=== PATIENT | female | born 1995 | race Caucasian/White ===

== ENCOUNTER 2018-10-05 09:45 | Emergency (ER) | payer MEDICAID ==
[~2018-10-05] VITALS: Ht 165.1 cm; Wt 85.0 kg
[~2018-10-05 09:45] MED LIST: CEPH-443 PO
[2018-10-05 09:49] VITALS: BP 132/70; PULSE 96; RESP 17; Ht 165.1 cm; Wt 85.0 kg
--- NOTE | 2018-10-05 19:31 | ERD ---
ER Documentation Chief Complaint Chief Complaint SENT FOR EVAL FOR NO FHT, LMP 5-20-19, NO VB, NO PAIN HPI 23yo 9wk female presents today for pelvic ultrasound after no FHT were heard at [employer] office yesterday. Pt denies pelvic pain, cramping, vaginal bleeding, discharge, or abdominal pain. She is current on all her care up to now. She is otherwise healthy, with no known medical conditions. ROS All systems reviewed and are negative except as per history of present illness. Medications Home Meds Active Scripts Cephalexin* (Keflex*) 500 Mg Capsule, 500 MG PO BID for 7 Days, #14 CAP Prov:MATI TOLBERT PA-C 10/05/18 Allergies Allergies: Coded Allergies: No Known Allergy (Unverified , 10/05/18) PMhx/Soc Medical and Surgical Hx: pt denies Medical Hx, pt denies Surgical Hx FmHx Family History: No diabetes, No coronary disease, No other Physical Exam Vitals Vital Signs Date Temp Pulse Resp B/P (MAP) Pulse Ox O2 O2 Flow FiO2 Time Delivery Rate 10/05/18 98.3 96 17 132/70 98 09:49 (90) Physical Exam GENERAL: Alert and coherent. Well appearing, non-toxic. No acute distress. HEAD: Normocephalic, atraumatic. EYES: EOMI. PERRL. No conjunctival injection. No scleral icterus. ENT: Nasal passages patent. Moist mucous membranes. NECK: Supple. Full range of motion. Trachea midline. No lymphadenopathy. RESPIRATORY: No tachypnea. Clear to auscultation bilaterally. No wheezing, rales or rhonchi. No accessory muscle use. CV: Regular rate and rhythm. No murmurs, rubs, or gallops. ABDOMEN: Soft, non-distended, non-tender. No guarding. No rebound tenderness or rigidity. No masses. Positive bowel sounds in all four quadrants. BACK: Full ROM. No CVA tenderness. EXTREMITIES: No deformity. No clubbing, cyanosis or edema. Equal pulses x 4. SKIN: Warm and dry. No obvious rashes, erythema, or petechiae. NEUROLOGIC: Alert and oriented x3. Appropriate speech, mood and affect. Face is symmetric. Speech is normal. CN II-XII intact. Moves all extremities equally. Ambulates with a strong, steady gait. Results 24 hrs Laboratory Tests Test 10/05/18 10:22 10/05/18 10:31 Urine Color YELLOW Urine Clarity CLOUDY Urine pH 7.0 Urine Specific [place] 1.006 Urine Ketones NEGATIVE mg/dL Urine Nitrite NEGATIVE mg/dL Urine Bilirubin NEGATIVE mg/dL Urine Urobilinogen NEGATIVE mg/dL Urine Leukocyte Esterase 3+ Irwin/ul Urine Microscopic RBC 4 /HPF Urine Microscopic WBC 4 /HPF Urine Squamous Epithelial Cells MODERATE /HPF Urine Amorphous Crystals FEW /HPF Urine Bacteria FEW /HPF Urine Hemoglobin NEGATIVE mg/dL Urine Glucose NEGATIVE mg/dL Urine Total Protein NEGATIVE mg/dl Beta HCG, Quantitative 19103.0 mIU/ml POC Beta HCG, Qualitative POSITIVE Procedures/MDM PROCEDURE: US Obstetrical 1st Trimester FINDINGS: The uterus is anteverted and prominent in size measuring 10.5 cm in sagittal diameter and 8.4 x 7.7 cm in cross diameter.. There is a well implanted gestational sac within the fundus of the uterus with a mean sac diameter of 3.39 cm which corresponds to a gestational sac age of 8 weeks 4 days. A yolk sac is identified. There is a single pole with a crown-rump length of 2.64 cm which corresponds to a gestational age of 9 weeks 3 days. No cardiac activity is detectable. The right ovary measures 2.9 x 2.3 x 2.2 cm and appears normal.. The left ovary measures 3.1 x 1.5 x 1.5 cm and appears normal. Vascular flow is demonstrated in each ovary on Doppler. No adnexal mass or free fluid is identified IMPRESSION: 1. demise with the fetus the size of the average fetus at 9 weeks 3 days by crown-rump length. 2. Unremarkable appearing ovaries with vascular flow demonstrated in each on Doppler. 3. No adnexal mass or free fluid is identified. MDM: 23yo 9weeks female presents to ED for ultrasound after no FHT heard in [facility] office. US findings discussed with patient and counseled re garding absent heart tones on US consistent with demise per radiologist. Pt counseled regarding need for f/u with pulp grinder and blender and repeat hormone levels in 48hrs to r/o ectopic. Pt stated would be presenting to [facility] office immediately after ED discharge. Pt also found to have concurrent UTI, pt is afebrile with no abdominal pain, pelvic pain, or flank pain. Will be discharged with rx Keflex and close follow-up with [employer] stressed and reiterated with patient for definitive management of US findings. Pt is to return to the ED at the immediate onset of any new or worsening symptoms. Pt expressed verbal understanding and agreement to treatment plan. All questions addressed and answered. Departure Diagnosis: Primary Impression: Miscarriage Additional Impression: Urinary tract infection Urinary tract infection type: acute cystitis Hematuria presence: without hematuria Qualified Codes: N30.00 - Acute cystitis without hematuria Condition: Stable Patient Instructions: Understanding Urinary Tract Infections (UTIs), Miscarriage Additional Instructions: Please return within 48hrs for repeat HCG testing or f/u with your pulp grinder and blender MATI TOLBERT PA-C Oct 05, 2018 19:31
== END 2018-10-05 13:00 | disposition home or self-care (01) ==
LOC: FTE 09:45
DX: O03.9 Complete or unspecified spontaneous abortion without complication (principal); O23.41 Unspecified infection of urinary tract in pregnancy, first trimester
CPT/HCPCS: 36415; 76801; 76817; 81001; 81025; 84702; Z7502

== ENCOUNTER 2018-10-07 10:34 | Emergency (ER) | payer MEDICAID ==
[~2018-10-07] VITALS: Ht 162.6 cm; Wt 85.5 kg
[2018-10-07 10:36] VITALS: Ht 162.6 cm; Wt 85.5 kg
--- NOTE | 2018-10-07 11:53 | ERD ---
ER Documentation Chief Complaint Chief Complaint for recheck of labs , 9 weeks preg , seen here on 10/05 HPI This is a 23-year-old female G2, P1 who presents at roughly 9 weeks to have repeat labs and possibly repeat ultrasound after she was told she was possibly having a miscarriage 2 days ago. Patient states that she was seen at her OB office 2 days ago and was told that there were no heart tones and was advised to report to the emergency department to have ultrasound. Patient had an ultrasound that day that showed demise. Patient is here to have repeat labs. Patient denies any pelvic pain, vaginal bleeding, vaginal discharge, dysuria, hematuria, cramping, abdominal pain, nausea, vomiting, diarrhea, constipation and all other symptoms. ROS All systems reviewed and are negative except as per history of present illness. Medications Home Meds Active Scripts Cephalexin* (Keflex*) 500 Mg Capsule, 500 MG PO BID for 7 Days, #14 CAP Prov:MATI TOLBERT PA-C 10/05/18 Allergies Allergies: Coded Allergies: No Known Allergy (Unverified , 10/05/18) PMhx/Soc Medical and Surgical Hx: pt denies Medical Hx, pt denies Surgical Hx Hx Alcohol Use: No Hx Substance Use: No Hx Tobacco Use: No Physical Exam Vitals Vital Signs Date Temp Pulse Resp B/P (MAP) Pulse Ox O2 O2 Flow FiO2 Time Delivery Rate 10/07/18 99.1 83 18 131/78 98 10:36 (95) Physical Exam Const: No acute distress Head: Atraumatic Eyes: Normal Conjunctiva ENT: Normal External Ears, Nose and Mouth. Neck: Full range of motion. No meningismus. Resp: Clear to auscultation bilaterally Cardio: Regular rate and rhythm, no murmurs Abd: Soft, non tender, non distended. Normal bowel sounds Skin: No petechiae or rashes Back: No midline or flank tenderness Ext: No cyanosis, or edema Neur: Awake and alert Psych: Normal Mood and Affect Results 24 hrs Laboratory Tests Test 10/07/18 11:20 Beta HCG, Quantitative 61537.0 mIU/ml Procedures/MDM EKG, MONITORS, & DIAGNOSTIC IMAGING: [address] [address] Radiology Main Line: [phone] DIAGNOSTIC IMAGING REPORT Patient: ANTWON KEVIN : 1995 Age: 23 Sex: F MR #: [id number] DOS: 10/07/18 1113 Ordering MD: PAULA DANG PA-C Location: [facility] Room/Bed: PROCEDURE: US Obstetrical 1st Trimester with endovaginal scanning and Doppler CLINICAL INDICATION: Miscarriage TECHNIQUE: Multiple real-time images were acquired of the patient's maternal abdomen utilizing a curved array transducer. Endovaginal scanning and Doppler were also applied COMPARISON: 10/05/2018 FINDINGS: The uterus is anteverted and prominent in size measuring 11.4 cm in sagittal diameter and 8.4 x 6.0 cm in cross diameter. Small Nabothian cysts are seen in the cervix. There is a well implanted gestational sac within the fundus of the uterus with a mean sac diameter of 3.39 cm which corresponds to a gestational sac age of 8 weeks 4 days. A yolk sac is identified. There is a single pole with a crown-rump length of 2.51 cm which corresponds to a gestational age of 9 weeks 2 days. No cardiac activity is demonstrated. The right ovary measures 3.3 x 3.3 x 2.2 cm and appears normal.. The left ovary measures 3.3 x 3.0 x 1.9 cm and appears normal. Vascular flow is demonstrated in each ovary on Doppler. No adnexal mass or free fluid is identified IMPRESSION: 1. demise with the fetus the size of the average fetus at 8 weeks 6 days plus or minus 4 days. This is not significantly changed from the previous study. 2. Normal ovaries with each demonstrating vascular flow on Doppler. 3. Again, no adnexal mass or free fluid is identified. Findings of demise at approximately 8-week 6 days gestation were telephoned by Eleazar Daniels MD to Flavia Odom on 10/07/2018 at 1240 hours. Physician Faustina Date Time Electronically viewed and signed by Physician Faustina on 10/07/2018 12:42 RH/ CC: ALTON PAULA WILKINSON [phone] LAB INTERPRETATION: HCG 76232 ER COURSE: The patient was stable throughout ED course. I kept the patient and/or family informed of laboratory and diagnostic imaging r esults throughout the emergency room course. The patient was promptly evaluated and a treatment plan was devised based on H&P and other data. This plan was discussed with the patient who agreed and had no further questions or concerns prior to discharge. MEDICAL DECISION MAKING: This is a 23-year-old female G2, P1 who presents at roughly 9 weeks to have repeat labs and possibly repeat ultrasound after she was told she was possibly having a miscarriage 2 days ago. Patient states that she was seen at her OB office 2 days ago and was told that there were no heart tones and was advised to report to the emergency department to have ultrasound. Patient had an ultrasound that day that showed demise. Patient is here to have repeat labs. hCG was repeated today, hcg 37906,,which is lower than hCG 2 days ago. Ultrasound repeated today which also shows demise. These findings were discussed with patient and she was advised to follow-up with OB in the next 48 hours to discuss possible D&C among other options to remove products of conception from uterus. At this time there is no OB emergency. No evidence of ectopic , among others. Vitals are stable patient can be managed with close outpatient follow-up. Advised patient follow-up with primary care in the next 48 hours. Return to ED with any worsening symptoms DISPOSITION PLAN: We discussed follow up with the patient's primary care doctor within 24 to 48 hours. Patient counseled regarding my diagnostic impression and care plan. Prior to discharge all questions answered. Pt agrees with treatment plan and understands strict return precautions. Precautionary instructions provided including instructions to return to the ER if not improving or for any worsening or changing symptoms or concerns. SPECIALIST FOLLOW UP RECOMMENDED: obgyn Patient has been advised to follow up with primary care in 1-2 days. Disclaimer: Inadvertent spelling and grammatical errors are likely due to EHR/dictation software use and do not reflect on the overall quality of patient care. Also, please note that the electronic time recorded on this note does not necessarily reflect the actual time of the patient encounter. Departure Diagnosis: Primary Impression: Miscarriage Condition: Stable Patient Instructions: Miscarriage, Understanding Miscarriage: During a Miscarriage, Understanding Miscarriage: Emotions Referrals: MANAGER DISH REFERRAL LIST Additional Instructions: Paciente aconseja volver a Departamento de urgencias inmediatamente para sntomas nuevos o que empeoran . Paciente aconseja posteriores con el PCP en 1-2 swain . Paciente verbaliza la comprehensin y est de acuerdo con el tratamiento y el curso de accin. Si el paciente no tiene ninguna de atencin primaria pueden seguir con [facility] [address] [place] [address] o [facility] + [address] [address] PAULA DANG PA-C Oct 07, 2018 11:53
[2018-10-07 13:45] VITALS: BP 118/82; PULSE 74; RESP 18
== END 2018-10-07 13:55 | disposition home or self-care (01) ==
LOC: FTE 10:34
DX: O03.9 Complete or unspecified spontaneous abortion without complication (principal)
CPT/HCPCS: 36415; 76801; 76817; 84702; Z7502

== ENCOUNTER 2018-10-21 08:57 | Day surgery (SDC) | payer MEDICAID ==
[~2018-10-21] VITALS: Ht 162.6 cm; Wt 84.0 kg
[2018-10-21] VITALS (13 sets, daily range): BP systolic 123–136; BP diastolic 56–86; PULSE 78–92; RESP 17–22; Ht 162.6 cm; Wt 84.0 kg
--- NOTE | 2018-10-21 09:42 | ERD ---
ER Documentation Chief Complaint Chief Complaint vaginal bleeding 9 weeks was diagnosed with demise HPI This is a 23-year-old female patient who presents emergency room with complaint of vaginal bleeding x2 hours. This is first episode of bleeding since that diagnosis of demise. Patient states she is now saturating 3 pads per hour. Her OB told her to come to the emergency room if her bleeding exceeded 2 pads per hour. She was diagnosed with demise on October 05, repeat hormone and ultrasound on October 07 confirmed diagnosis. Patient has had several visits with her OB who offered her medications to assist with the miscarriage, patient has chosen to not take any medications and complete miscarriage naturally. Patient denies fever, no back pain, no pelvic pain, no dizziness. MD: [facility] Rolando Dsouza [phone] History and physical exam and plan of care discussion performed via aircraft [employer]. Has been present during H&P. Plan of care discussed, questions answered. ROS All systems reviewed and are negative except as per history of present illness. Medications Home Meds Active Scripts Cephalexin* (Keflex*) 500 Mg Capsule, 500 MG PO BID for 7 Days, #14 CAP Prov:MATI TOLBERT PA-C 10/05/18 Allergies Allergies: Coded Allergies: No Known Allergy (Unverified , 10/05/18) PMhx/Soc Medical and Surgical Hx: pt denies Medical Hx, pt denies Surgical Hx Hx Alcohol Use: No Hx Substance Use: No Hx Tobacco Use: No FmHx Family History: No diabetes, No coronary disease, No other Physical Exam Vitals Vital Signs Date Temp Pulse Resp B/P (MAP) Pulse Ox O2 O2 Flow FiO2 Time Delivery Rate 10/21/18 97.3 89 18 143/93 99 08:59 (110) Physical Exam Const: No acute distress Head: Atraumatic Eyes: Normal Conjunctiva, PERRL ENT: Normal External Ears, Nose and Mouth. Pharynx pink, moist, no lesions or petechiae Neck: Full range of motion. No meningismus. No lymphadenopathy Resp: Clear to auscultation bilaterally Cardio: Regular rate and rhythm, no murmurs Abd: Soft, non tender, non distended. Normal bowel sounds, no organomegaly, no bruising Skin: No petechiae or rashes, good turgor less than 2 seconds, Skin color consistent for ethnicity, no diaphoresis Back: No midline or flank tenderness, no CVT Neur: Awake and alert, clear speech, steady gait Psych: Normal Mood and Affect Result Diagram: 10/21/18 1100 10/21/18 1100 Results 24 hrs Laboratory Tests Test 10/21/18 09:51 10/21/18 11:00 White Blood Count 12.3 10^3/ul Red Blood Count 4.60 10^6/ul Hemoglobin 13.3 g/dl 13.3 g/dl Hematocrit 40.8 % 39.9 % Mean Corpuscular Volume 88.7 fl Mean Corpuscular Hemoglobin 28.9 pg Mean Corpuscular Hemoglobin Concent 32.6 g/dl Red Cell Distribution Width 12.3 % Platelet Count 284 10^3/UL Mean Platelet Volume 10.0 fl Immature Granulocytes % 0.400 % Neutrophils % 74.7 % Lymphocytes % 18.5 % Monocytes % 5.4 % Eosinophils % 0.7 % Basophils % 0.3 % Nucleated Red Blood Cells % 0.0 /100WBC Immature Granulocytes # 0.050 10^3/ul Neutrophils # 9.1 10^3/ul Lymphocytes # 2.3 10^3/ul Monocytes # 0.7 10^3/ul Eosinophils # 0.1 10^3/ul Basophils # 0.0 10^3/ul Nucleated Red Blood Cells # 0.0 10^3/ul Urine Color RED Urine Clarity TURBID Urine pH 7.0 Urine Specific [place] 1.041 Urine Ketones 1+ mg/dL Urine Nitrite NEGATIVE mg/dL Urine Bilirubin NEGATIVE mg/dL Urine Urobilinogen NEGATIVE mg/dL Urine Leukocyte Esterase NEGATIVE Irwin/ul Urine Microscopic RBC > 182 /HPF Urine Microscopic WBC 0 /HPF Urine Hemoglobin 3+ mg/dL Urine Glucose 1+ mg/dL Urine Total Protein 3+ mg/dl Beta HCG, Quantitative 1377.5 mIU/ml Prothrombin Time 13.8 Sec Prothrombin Time Ratio 1.1 INR International Normalized Ratio 1.05 Activated Partial Thromboplast Time 32.2 Sec Sodium Level 138 mmol/L Potassium Level 4.3 mmol/L Chloride Level 104 mmol/L Carbon Dioxide Level 24 mmol/L Anion Gap 10 Blood Urea Nitrogen 7 mg/dl Creatinine 0.52 mg/dl Est Glomerular Filtrat Rate mL/min > 60 mL/min Glucose Level 103 mg/dl Calcium Level 10.0 mg/dl Total Bilirubin 0.4 mg/dl Direct Bilirubin 0.00 mg/dl Indirect Bilirubin 0.4 mg/dl Aspartate Amino Transf (AST/SGOT) 20 IU/L Alanine Aminotransferase (ALT/SGPT) 21 IU/L Alkaline Phosphatase 81 IU/L Total Protein 8.3 g/dl Albumin 4.7 g/dl Globulin 3.60 g/dl Albumin/Globulin Ratio 1.30 Procedures/MDM PROCEDURES/MDM DIAGNOSTIC IMAGING: Read by radiologist. Pelvic IMPRESSION: Previously seen gestational sac is no longer visualized. The findings likely represent an in progress. Heterogeneous and thickened endometrium with increased vascularity, suspicious for retained products of conception. Follow-up ultrasound and HCG levels is recommended. PROCEDURES: Pelvic exam. Normal external genitalia, copious bright red blood from external canal, large clots removed using gauze, suction necessary to remove excess blood in vault, cervix visualized with no tissue with in cervical office, with large bright red blood bleeding unable to tamponade with gauze, patient with minimal pain, tolerated well. LAB INTERPRETATION: Mild leukocytosis, no anemia at this time with repeat H&H, urine negative for UTI. -Medications: Declines pain medicine Patient tolerated medication well with no adverse reactions. Patient reported improvement in pain. -Consultation: Dr. Hurley evaluated patient and determined D&C with appropriate at this time. Consulted with patient and family who agreed to this procedure. DISPOSITION and PLAN: OR for D&C Departure Diagnosis: Primary Impression: Miscarriage Additional Impression: Retained products of conception Condition: ALBERTO Biswas NP Oct 21, 2018 09:42
--- NOTE | 2018-10-21 12:10 | PREAC ---
Date/Time of Note Date/Time of Note DATE: 10/21/18 TIME: 12:08 Anesthesia Eval and Record Evaluation Time Pre-Procedure Interview DATE: 10/21/18 TIME: 12:08 Age 23 Sex female NPO: 8 hrs Preoperative diagnosis missed Planned procedure D&C Past Medical History Past Medical History: Includes : : Surgery & Anesthesia Issues No known issue Meds Anticoagulation: No Beta Puja within 24 hr: No Reason Beta Puja not given: Pt. not on B-Puja Active Scripts Cephalexin* (Keflex*) 500 Mg Capsule, 500 MG PO BID for 7 Days, #14 CAP Prov:MATI TOLBERT PA-C 10/05/18 Meds reviewed: Yes Allergies Coded Allergies: No Known Allergy (Unverified , 10/05/18) Allergies Reviewed: Yes Labs/Studies Labs Reviewed: Reviewed by anesthesiologist Result Diagram: 10/21/18 1100 10/21/18 1100 Laboratory Tests 10/21/18 09:51 10/21/18 11:00 Blood Bank Test 10/21/18 11:00 Antibody Screen NEGATIVE Blood Type O POSITIVE test: Positive Studies: ECG Pre-procedure Exam Last vitals Vital Signs Date Temp Pulse Resp B/P (MAP) Pulse Ox O2 O2 Flow FiO2 Time Delivery Rate 10/21/18 98.2 87 18 113/57 98 Room Air 11:43 (75) Airway: Adequate mouth opening, Adequate thyromental dist Mallampati: Mallampati II Teeth: Normal Lung: Normal Heart: Normal ASA Physical Status ASA physical status: 2 Emergency: E Planned Anesthetic General/MAC: LMA Planned Pain Management Parenteral pain med Pre-operative Attestations Prior to commencing anesthesia and surgery, the patient was re-evaluated, there was verification of: *The patient's identity *The results of appropriate recent lab work and preoperative vital signs *The above evaluation not changing prior to induction *Anesthetic plan, risk benefits, alternative and complications discussed with patient/family; questions answered; patient/family understands, accepts and w ishes to proceed. BHUMIKA SWIFT MD Oct 21, 2018 12:10
[2018-10-21] MEDS ORDERED: MIDAZOLAM 1 MG/ML 2 ML INJ ONE (12:40)
[2018-10-21] MEDS ORDERED: FENTAnyl 50 MCG/ML VIAL ONE (12:40)
[2018-10-21] MEDS ORDERED: LIDOCAINE 2% (SDV) 5 ML INJ ONE (12:58)
[2018-10-21] MEDS ORDERED: PROPOFOL 20 ML ONE (12:58)
[2018-10-21] MEDS ORDERED: CEFAZOLIN 1 GM INJ ONE (12:58)
[2018-10-21] MEDS ORDERED: ONDANSETRON 4 MG INJ ONE (13:00)
--- NOTE | 2018-10-21 13:10 | OPPN ---
Date/Time of Note Date/Time of Note DATE: 10/21/18 TIME: 13:09 Operative Report Preoperative Diagnosis Incomplete Postoperative Diagnosis same Operation/Procedure Performed D&C&Suction Surgeon see signature line business banking sales assistant none Anesthesia: general Estimated blood loss: 0 - 10 ml's Transfusion Required none Specimen POC Grafts/Implants none Complications none MAYDA MCDANIEL M.D. Oct 21, 2018 13:10
--- NOTE | 2018-10-21 13:15 | PAC ---
Date/Time of Note Date/Time of Note DATE: 10/21/18 TIME: 13:14 Post-Anesthesia Notes Post-Anesthesia Note Last documented vital signs Vital Signs Date Temp Pulse Resp B/P (MAP) Pulse Ox O2 O2 Flow FiO2 Time Delivery Rate 10/21/18 98.2 87 18 113/57 98 Room Air 11:43 (75) Activity: WNL Respiratory function: WNL Cardiovascular function: WNL Mental status: Baseline Pain reasonably controlled: Yes Hydration appropriate: Yes Nausea/Vomiting absent: Yes Comments BP:112/56, P:87, Spo2:100%, T:98,8 BHUMIKA SWIFT MD Oct 21, 2018 13:15
[2018-10-21] MEDS ORDERED: HYDROmorphONE 1 MG/5 ML IV SYRINGE IV PRN ×2 (13:30)
[2018-10-21] MEDS ORDERED: ONDANSETRON 4 MG INJ IV PRN (13:30)
[2018-10-21] MEDS ORDERED: MEPERIDINE 25 MG INJ IV PRN (13:30)
[2018-10-21] MEDS ORDERED: FENTAnyl 50 MCG/ML VIAL IV PRN (13:30)
[2018-10-21] MEDS ORDERED: METOCLOPRAMIDE 10 MG INJ IV PRN (13:30)
[2018-10-21] MEDS ORDERED: DIPHENHYDRAMINE 50 MG INJ IV PRN (13:30)
--- NOTE | 2018-10-21 21:01 | HP ---
DATE OF ADMISSION: 10/21/2018 HISTORY OF PRESENT ILLNESS: A 23-year-old with diagnosis of incomplete , admitted through [facility] emergency room with vaginal bleeding for D and C and suction. PAST MEDICAL HISTORY: Denies. PAST SURGICAL HISTORY: Denies. ALLERGIES: NKDA. PHYSICAL EXAMINATION: VITAL SIGNS: Stable. GENERAL: Normal. ABDOMEN: Not tender, not distended. GENITAL: Around 3 to 4 cystic clots in the vaginal vault. ASSESSMENT AND PLAN: A 23-year-old with incomplete , for D and C and suction. Risks and tatianna efits discussed. The patient signed the consent and was taken to the operating room. Dictated By: MAYDA MONTANA/LENY Conf#: [id number] DID#: [id number]
--- NOTE | 2018-10-21 21:03 | OPR ---
DATE OF OPERATION: 10/21/2018 PREOPERATIVE DIAGNOSIS: Incomplete . POSTOPERATIVE DIAGNOSIS: Incomplete . OPERATION PERFORMED: Dilation and curettage and suction. ESTIMATED BLOOD LOSS: Minimum. SPECIMEN: Productive conception. COMPLICATIONS: None. TECHNIQUE: The patient was taken to the operating room where general anesthesia was found to be adeq uate. The patient was placed in dorsal lithotomy position. After prep and drape, a weighted speculu m was placed inside the vaginal vault. Anterior lip of the cervix was grasped by single-tooth tenacu lum. Cervix was 2 cm open. Suction size 8 was inserted. Intrauterine cavity, was suctioned. Sharp curettage of endometrial cavity was done. Intrauterine cavity was suctioned again, hemostasis achie kash. Instruments removed. The patient tolerated the procedure well and was transferred to recovery room in stable condition. There was no complication regarding this surgery. Dictated By: MAYDA MONTANA/LENY Conf#: [id number] DID#: [id number]
== END 2018-10-21 14:54 | disposition home or self-care (01) ==
LOC: FTE 08:57 → SDS 10:59
PROVIDERS: ATTEND Obstetrics & Gynecology
DX: O03.4 Incomplete spontaneous abortion without complication (principal)
CPT/HCPCS: 59812; 76801; 76817; 80053; 81001; 84702; 85014; 85018; 85025; 85610; 85730; 86850; 86900; 86901; 88305; J0690; J2250; J2405; J3010; Z7512; Z7610; 36415